=== PATIENT | female | born 1945 | race Caucasian/White ===

== ENCOUNTER 2016-08-18 23:26 | Observation (INO) ==
--- NOTE | 2016-08-19 02:00 | Emergency Department Report ---
General Adult HPI - General Chief complaint: Chest Pain Stated complaint: diff breathimg Time Seen by Provider: 08/19/16 00:08 Source: patient Mode of arrival: ambulatory Limitations: no limitations - History of Present Illness HPI narrative: 71-year-old female presents to the emergency department with a chief complaint of chest discomfort. Patient has noted intermittent chest discomfort over the past several days. She states it is increasing. Patient also notes dyspnea on exertion. She notes a moderate pressure sensation in her left chest currently. No radiation. She notes that her symptoms increase with exertion and improves with rest. No history of coronary artery disease. She has never been evaluated by cardiology. She has no other complaints or associated symptoms. Symptoms been persistent in nature since onset. She was at home when her symptoms began. - Related Data Home Medications Medication Instructions Recorded Confirmed Diclofenac [Voltaren] 100 gm TP 1-2XD 08/19/16 08/19/16 Lisinopril [Zestril] 20 mg PO DAILY 08/19/16 08/19/16 Nitrofurantoin Macrocrystal 100 mg PO 1-2XD 08/19/16 08/19/16 [Nitrofurantoin] Allergies Allergy/AdvReac Type Severity Reaction Status Date / Time morphine AdvReac Severe NAUSEA AND Verified 08/19/16 03:10 VOMITING Review of Systems Constitutional: Denies: fever, chills Eyes: Denies: eye pain, vision change ENT: Denies: ear pain, throat pain Cardiovascular: Reports: chest pain, dyspnea on exertion Respiratory: Denies: cough, dyspnea Gastrointestinal: Denies: abdominal pain, nausea, vomiting, diarrhea Genitourinary: Denies: urgency, dysuria Musculoskeletal: Denies: back pain, arthralgia Integumentary: Denies: erythema, rash Neurological: Denies: headache, numbness Psychiatric: Denies: anxiety, depression Endocrine: Denies: fatigue, heat or cold intolerance Hematological/Lymphatic: Denies: easy bleeding, easy bruising Allergic/Immunologic: Denies: facial swelling, urticaria PFSH Patient Stated Medical History Dysphagia Yes Hypertension Yes Chronic Obstructive Pulmonary Yes Disease (COPD) Osteoarthritis Yes Surgical History: Hysterectomy Family History: Negative. - Social History Smoking status: Never smoker Substance use type: does not use Alcohol intake frequency: does not drink Physical Exam - Limitations Limitations: no limitations - General General appearance: alert, in no apparent distress - Normal Exams: Head:: Normocephalic without trauma Eyes:: Pupils are PERRLA w/ EOMI, No scleral icterus, irritation, or foreign bodies noted ENMT:: No facial trauma, nasal exudates, pharyngeal erythema, or exudates are noted Dental: No fractured, loose, or missing teeth noted Neck:: Full range of motion, without adenopathy, JVD, bruits or thyromegaly Chest/Respirations:: Clear all bullock, with good airflow, and symmetry bilaterally Cardiovascular:: Regular rate and rhythm, without murmur or gallop, Pulses 2+ all extremities, capillary refill, <2 seconds all extremities Abdomen:: Bowel sounds positive, soft, non-tender, non-distended, no hepatosplenomegaly, masses or bruits noted Lymphatic:: No lymphadenopathy, or lymphedema noted Musculoskeletal:: No tenderness, or deformity noted, good range of motion, all extremities Integumentary:: No rashes, hives, or bruising noted, hair and nails, without abnormality Neurological:: Patient is alert, and oriented, cranial nerves, motor/sensory/ cerebellar, exams w/o gross deficits, to observation Psychiatric:: Patient exhibits, appropriate attention, emotion and affect Course Vital Signs Temperature 98.4 F 08/18/16 23:30 Pulse Rate 83 08/18/16 23:30 Respiratory Rate 20 08/18/16 23:30 Blood Pressure 176/76 H 08/18/16 23:30 Pulse Oximetry 94 08/18/16 23:30 Temperature 97.5 F 08/19/16 20:16 Pulse Rate 56 L 08/19/16 21:31 Respiratory Rate 16 08/19/16 21:31 Blood Pressure 119/65 08/19/16 21:31 Pulse Oximetry 100 08/19/16 21:31 Medical Decision Making - [facility] Narrative Medical decision making narrative: Labs / imaging were discussed in detail with the patient and questions are answered. Patient is given 324 mg of aspirin by mouth times one. Patient is given sublingual nitroglycerin trial which alleviated her pain. She is discussed with Dr. Joel and will be admitted to the service of the hospitalist in improved condition. She is given Lovenox subcutaneously 1 mg/kg times one. She is admitted to the service of Dr. Ramos after discussion with Dr. Mcgovern. Cardiology consult will be performed. Patient is in agreement with the current plan of management. She is admitted to the hospital in improved condition. No further orders from accepting physician who is in agreement with the current plan of management. - Differential Diagnosis angina, acute OH, COPD exacerbation, coronary artery disease - Lab Data Result diagrams: 08/19/16 00:42 08/19/16 00:42 Lab Results 08/19/16 08/19/16 08/19/16 Range/Units 00:42 00:42 00:42 WBC 12.4 H (4.5-11.0) T/MM3 RBC 4.27 (4.00-5.20) M/MM3 Hgb 12.9 (12-16) GM/DL Hct 40.5 (36-46) % MCV 94.8 (80-100) UM3 MCH 30.2 (26-34) UUG MCHC 31.9 (31-37) GM/DL RDW Std Deviation 42.8 (36.9-50.2) FL Plt Count 191 (130-400) T/MM3 MPV 11.7 (9.4-12.4) UM3 Immature Gran % (Auto) 0.2 (0.0-0.5) % Neut % (Auto) 78.4 H (33-66) % Lymph % (Auto) 10.0 L (23-45) % [place] % (Auto) 5.6 (0-9.0) % Eos % (Auto) 5.2 H (0-4) % Baso % (Auto) 0.6 (0-2) % Neut # 9.7 H (1.8-7.7) T/MM3 Lymph # 1.2 (1-4.8) T/MM3 [place] # 0.7 (0-0.8) T/MM3 Eos # 0.6 H (0-0.5) T/MM3 Baso # 0.1 (0-0.2) T/MM3 Abs Immat Gran (auto) 0.02 (0.00-0.03) T/MM3 Turbidity < 20 (0-20) Sodium 145 H (134-144) MEQ/L Potassium 4.1 (3.6-5) MEQ/L Chloride 106 (98-107) MEQ/L Carbon Dioxide 27 (22-30) MEQ/L Anion Gap 12 (5-15) MEQ/L BUN 17.0 (7-17) MG/DL Creatinine 0.7 (0.7-1.2) MG/DL GFR Calculation 82 BUN/Creatinine Ratio 24 (6-26) RATIO Glucose 103 (65-110) MG/DL Hemoglobin A1c 5.6 L (6.1-7.9) % Calculated Osmolality 281 H (261-280) MOSM/KG Calcium 9.9 (8.4-10.2) MG/DL Total Bilirubin 0.40 (0.20-1.30) MG/DL Icterus Index < 2 (0-7) AST 19 (14-36) U/L ALT 38 (9-52) U/L Alkaline Phosphatase 95 (38-126) U/L Troponin I < 0.012 (0-0.12) ng/ml Total Protein 6.7 (6.3-8.2) G/DL Albumin 4.0 (3.5-5.0) G/DL Globulin 2.7 (2.4-3.6) G/DL Albumin/Globulin Ratio 1.5 (1.1-2.2) RATIO Specimen Hemolysis < 15 (0-25) - Radiology Data CXR - No acute processes. - EKG Data EKG #1 EKG results narrative: Sinus rhythm. [address] depression in leads V3/V4. No STEMI. Disposition Clinical Impression: Chest pain Qualifiers: Chest pain type: unspecified Qualified Code(s): R07.9 - Chest pain, unspecified Disposition: [address] [facility] Condition: Improved Time of Disposition: 02:15 (Admit. Dr. Ramos. ) - Seen By: physician
[2016-08-19] MEDS ORDERED: HYDROCODONE/APAP 5mg/325mg TABLET PO ONE (02:46)
[2016-08-19] MEDS ORDERED: ASPIRIN 81 MG CHEWABLE TABLET PO ONE (02:46)
[2016-08-19] MEDS ORDERED: ONDANSETRON 4 MG/2 ML INJECTION IVP PRN (03:16)
[2016-08-19] MEDS: NITROGLYCERIN 0.4 MG SUBLINGUAL TABLET SL PRN ×3 (03:26→04:21)
[2016-08-19] MEDS: ENOXAPARIN 60 MG/0.6 ML INJECTION SQ SCH ×2 (04:56→09:19)
--- NOTE | 2016-08-19 04:58 | History & Physical Report ---
<Louie Mcgovern Joseph - Last Filed: 08/19/16 04:55> History of Present Illness Date: 08/19/16 Chief complaint: chest pain HPI: This is a 71 y/o female who has been having intermittent exertional chest pain for over a year. The patient was at work tonight and with exertion developed her pain again that radiated to her jaw and left shoulder. The patient had increased fatigue and shortness of breath with this pain. Symptoms were worse than usual. The patient presents to the ED with an EKG demonstrating subtle ant /lat changes. Cardiology was contacted by ED provider and recommended medicine admission with therapeutic lovenox. The patient has sig risk including HTN, family history, prior tobacco abuse. The patient has never had risk stratifying procedure in the past. Will admit fully to the hospital on tele and await cardiology further input Review of Systems Review of systems: no headache, no change in vision, no ear pain, no congestion, no fever chills or sweats. pain is mostly a pressure substernal left radiating to left jaw and shoulder that is worsened with activity. The patient states that when pain comes on she gets profoundly fatigued and dyspneic. The patient denies nausea or vomiting. patient denies abdomen mariee. no change in BM, no urine symptoms. trace edema. no focal neruo concerns. 10 point ROS otherwise negative except for described above. PFSH Patient Stated Medical History Dysphagia Yes Hypertension Yes Chronic Obstructive Pulmonary Yes Disease (COPD) Gastroesophageal Reflux Yes Disease Osteoarthritis Yes Medical History Updates: HTN. undiagnosed COPD. OA Surgical History: TAHBSO. joint replacement on her great toe - Social History Smoking status: Former smoker Substance use type: does not use Alcohol intake frequency: does not drink Household members: family service: No Current occupational status: employed Current occupational exposures/hazards: No Does patient use chewing tobacco?: No Current residence: Apartment/Private Home Medications Home Medications Medication Instructions Recorded Confirmed Type Diclofenac [Voltaren] 100 gm TP 1-2XD 08/19/16 08/19/16 History Lisinopril [Zestril] 20 mg PO DAILY 08/19/16 08/19/16 History Nitrofurantoin Macrocrystal 100 mg PO 1-2XD 08/19/16 08/19/16 History [Nitrofurantoin] Allergies Allergy/AdvReac Type Severity Reaction Status Date / Time morphine AdvReac Severe NAUSEA AND Verified 08/19/16 03:10 VOMITING Exam Vital Signs: Temp Pulse Resp BP Pulse Ox 98.4 F 83 20 176/76 H 94 08/18/16 23:30 08/18/16 23:30 08/18/16 23:30 08/18/16 23:30 08/18/16 23:30 Telemetry Rhythm: Sinus Rhythm Height: 1.5 m Weight: 57.5 kg - Constitutional Present: no acute distress, well nourished, well developed, average body habitus , cooperative - Routine HEENT Exam Head: Present: normocephalic, atraumatic. Absent: cushingoid faces Eye: Present: EOMI, conjunctivae pink. Absent: scleral injection ENT: Present: mucous membranes moist - Routine Neck Exam Present: supple, full ROM, trachea midline. Absent: tenderness, swelling - Routine Respiratory Exam Present: CTA bilaterally. Absent: rales, respiratory distress, rhonchi, wheezes , crackles - Routine Cardiovascular Exam Present: RRR, no murmur. Absent: gallop, rubs - Routine Abdominal Exam Present: soft, non distended, non tender - Routine Back/Spine/Pelvis Exam Back/Spine: Present: full ROM - Routine Skin Exam Present: intact - Routine Neurological Exam Present: alert, oriented X3, CN II-XII intact, moving all extremities, normal tone. Absent: motor deficit, altered mental status, abnormal gait, facial asymmetry - Routine Psychiatric Exam Present: normal affect, normal thought process, cooperative, good judgment Results - Labs CBC & Chem 7: 08/19/16 00:42 08/19/16 00:42 - ECG Data Tracing #1 sinus. subtle t wave depression V3 through V4, no old to compare - Imaging and Cardiology Chest x-ray Additional comments: flattened diaphragm. c/w COPD changes Assessment and Plan (1) Chest pain Current visit: Yes Status: Acute 08/19/16 05:04 this patient's symptoms are very worrisom. DDX: unstable angina, pleuresy, MS. rule out ongoing. risk is real with remote tobacco, HTN, family history. check A1C, lipid panel. NPO. Cardiology contacted by ED and r/c therapeutic lovenox. Will defer further workup to their recommendations. In this case it might be worthwhile to go directly to heart cath. Even is stress test were to be negative there would be real concern that it was a false negative. (2) HTN (hypertension) Current visit: Yes Status: Acute 08/19/16 05:06 once med rec completed will continue JONNA, consdier adding b bozena if continued concerns about cardiac issues. (3) COPD (chronic obstructive pulmonary disease) Current visit: Yes Status: Acute 08/19/16 05:06 This patient has a history of tobacco abuse. currently resolved. CXR is very abnormal and is c/w COPD changes with hyperexpansion and flattened diaphragm. For now albuterol and consider bedside spirometry to better define. The priority is cardiac eval first. DVT Prophylaxis: SCD's, Lovenox GI Prophylaxis: Protonix Resuscitation Status: Full Code Hospital Course Summary Disclaimer: The visit summary below is not to be considered part of the above Progress Note. <Mila Ramos - Last Filed: 08/19/16 16:44> History of Present Illness Date: 08/19/16 [facility] Patient Stated Medical History Dysphagia Yes Hypertension Yes Chronic Obstructive Pulmonary Yes Disease (COPD) Gastroesophageal Reflux Yes Disease Osteoarthritis Yes Exam Vital Signs: Temp Pulse Resp BP Pulse Ox 96.2 F L 63 17 163/78 H 97 08/19/16 16:00 08/19/16 16:00 08/19/16 16:00 08/19/16 16:00 08/19/16 16:00 Height: 1.5 m Weight: 58.2 kg Results - Labs CBC & Chem 7: 08/19/16 00:42 08/19/16 00:42 Assessment and Plan (1) Chest pain Current visit: Yes Status: Acute (2) HTN (hypertension) Current visit: Yes Status: Acute (3) COPD (chronic obstructive pulmonary disease) Current visit: Yes Status: Acute Assessment and Plan: Dr. Mcgovern's note reviewed. Mrs. Duran interviewed and examined. CC: Chest pain HPI: Mrs. Duran is a 71-year-old female who describes intermittent pain in the left chest for the past year. Episodes can be with exertion or at rest and have awakened her from sleep. Pain typically starts under the left breast and radiates into the left side of her neck but generally does not involve the left shoulder arm. There is a comforting dyspnea but no nausea or diaphoresis. She's tried taking Aleve to control symptoms and indicates partial relief. Discomfort can last for hours at a time. Over the past year episodes become more frequent, severe, and lasted longer. 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 She developed progressive pain and difficulty breathing. She described significant pressure in her chest and a sensation that she was struggling to breathe. She felt hot but does not recall diaphoresis and again denied nausea. She reported lightheadedness but no awareness of palpitations. She presented to the emergency room where EKG revealed mild ST depression in anterior leads and she was hospitalized for further assessment. Patient has risk factors including hypertension, family history of coronary disease and history of tobacco abuse. PH/SH/FH: agree with that recorded above by Dr. Mcgovern. Patient smoked 1-2 packs per day for 25 years and discontinued tobacco use 7 years ago. Family history is notable for 1 son dying at age 1 of congenital heart disease, mother dying of ovarian cancer, father dying of Parkinson's disease and asthma. A sister had heart disease and a second sister has thyroid disease. ROS: 10 point review as recorded above. Patient additionally reports having frequent nocturia and that her legs feel heavy. EXAM: General-NAD, alert, slightly anxious 123/87, 163/78 pulse 55, 63 temperature 96.2 HEENT-PERRL, EOMI without nystagmus, conjunctiva clear, sclera anicteric, conjugate gaze, facial structures symmetric, oropharynx clear, neck supple and without adenopathy Lungs-respirations nonlabored, good airflow, breath sounds clear Cardiac-regular rhythm, S1-S2, no murmur appreciated Abd-abdomen soft, nontender, without palpable mass, bowel sounds present although diminished Ext-trace edema bilateral lower extremities Skin-without rash Neuro-cranial nerves II through XII intact, motor tone/power within normal limits, sensation intact 4 extremities to light touch Psych-calm, cooperative, slightly anxious DATA: Twelve-lead EKG reviewed by myself-normal sinus rhythm, minor ST depression V3-V5, no T-wave changes. Chest x-ray also reviewed by myself demonstrating normal cardiac silhouette, clear lung bullock. White count slightly elevated at 12.4, electrolytes/liver enzymes unremarkable, TSH 3.48, A1c 5.6 Troponin < 0.0122 A/P: Atypical chest pain Abnormal EKG Intermittent bradycardia Hypertension History COPD/hx tobacco abuse GERD DJD Case been reviewed with Dr. Joel-cardiac catheterization planned later today due to EKG changes. Third troponin pending. Aspirin, therapeutic Lovenox initiated last night. Lipids pending. Continue lisinopril for hypertension, may benefit from initiation of beta bozena depending on results of heart catheterization. Outpatient status for evaluation of chest pain. Patient will return to care of Clari Luis APRN at [facility] at discharge. Sepsis Assessment - Focused Exam Vital Signs Temp Pulse Resp BP Pulse Ox 08/19/16 16:00 96.2 F L 63 17 163/78 H 97 08/19/16 08:00 96.9 F 55 L 18 123/85 93 08/19/16 04:45 70 08/19/16 04:37 80 08/19/16 04:30 96.4 F L 73 18 146/80 H 94 Hospital Course Summary Disclaimer: The visit summary below is not to be considered part of the above Progress Note.
--- NOTE | 2016-08-19 08:00 | XRay Report ---
Indication: Left-sided chest pain and dyspnea PROCEDURE: XR chest 1V: Encounter: Initial Comparison: June 20, 2014 Findings: The lungs are stable in appearance without new focal airspace consolidation. Mild interstitial prominence and hyperinflation suggesting COPD. There is no pleural effusion or pneumothorax. The heart size, pulmonary vascularity and mediastinal contours are unchanged. IMPRESSION: Stable appearance of the chest without acute cardiopulmonary disease. .
[2016-08-19] MEDS: LISINOPRIL 20 MG TABLET PO SCH (09:19)
--- NOTE | 2016-08-19 10:10 | Cardiology Consult Note ---
History of Present Illness Consult date: 08/19/16 <Christa Arreaga 08/19/16 10:21> Requesting physician: Mila Ramos <Christa Arreaga 08/19/16 10:21> Consult reason: chest pain <Christa Arreaga 08/19/16 10:21> Chief complaint: chest pain <Christa Arreaga 08/19/16 10:21> History of present illness: Monika is a 71 year old female who has been having intermittent exertional chest pain for over a year. She was at work last evening and with exertion developed her pain again that radiated to her jaw and left shoulder. She had increased fatigue and shortness of breath with this pain that became worse when she laid down. She presented to the ED with an EKG demonstrating subtle ant/lat changes. Dr Joel was contacted by ED provider and recommended medicine admission with therapeutic Lovenox. The patient has risk factors including HTN, family history, prior tobacco abuse and reports high lipids. She has never been seen by Cardiology. She is examined in her room on Medical. She reports chronic chest pain with exertion. She describes a pressure on her left chest which began at work but worsened when she laid down at home. This was accompanied by shortness of breath. She denies diaphoresis, nausea, dizziness or near syncope. She reports urinary infection which she has been struggling with for weeks and is currently taking Nitrofurantoin. <Christa Arreaga 08/19/16 10:21> Review of Systems - Constitutional Constitutional: Present: fatigue. Absent: chills, fever(s), headache(s), weakness <Christa Arreaga 08/19/16 10:21> - EENMT Eyes: Absent: change in vision <Christa Arreaga 08/19/16 10:21> Balance: Absent: vertigo <Christa Arreaga 08/19/16 10:21> Mouth/Throat: Absent: sore throat <Christa Arreaga 08/19/16 10:21> - Cardiovascular Cardiovascular: Present: chest pain, orthopnea. Absent: palpitations, syncope, heart murmur <Christa Arreaga 08/19/16 10:21> Vascular: Absent: pedal edema <Christa Arreaga 08/19/16 10:21> - Respiratory Respiratory: Present: dyspnea <Christa Arreaga 08/19/16 10:21> - Gastrointestinal Gastrointestinal: Absent: diarrhea, nausea, vomiting <Chrisat Arreaga 10:21> - Genitourinary Genitourinary: Present: dysuria, urinary frequency <Christa Arreaga 08/19/16 10:21> - Neurological Neurological: Absent: dizziness <Christa Arreaga 08/19/16 10:21> PFSH Patient Stated Medical History Dysphagia Yes Hypertension Yes Chronic Obstructive Pulmonary Yes Disease (COPD) Gastroesophageal Reflux Yes Disease Osteoarthritis Yes <Haris Joel - 08/21/16 13:26> Patient Stated Medical History Dysphagia Yes Hypertension Yes Chronic Obstructive Pulmonary Yes Disease (COPD) Gastroesophageal Reflux Yes Disease Osteoarthritis Yes <Christa Arreaga 08/19/16 10:21> Medical History Updates: HTN. undiagnosed COPD. OA <Christa Arreaga 10:21> Surgical History: TAHBSO. joint replacement on her great toe <Christa Arreaga 08/19/16 10:21> - Social History Smoking status: Former smoker <Christa Arreaga 08/19/16 10:21> Packs-years: 25 <Christa Arreaga 08/19/16 10:21> Substance use type: does not use <Christa Arreaga 08/19/16 10:21> Alcohol intake frequency: does not drink <Christa Arreaga 08/19/16 10:21> Current occupational status: employed <Christa Arreaga 08/19/16 10:21> Does patient use chewing tobacco?: No <Christa Arreaga 08/19/16 10:21> Current residence: Apartment/Private Home <Christa Arreaga 08/19/16 10:21> Medications Home Medications Medication Instructions Recorded Confirmed Type Diclofenac [Voltaren] 100 gm TP 1-2XD 08/19/16 08/19/16 History Lisinopril [Zestril] 20 mg PO DAILY 08/19/16 08/19/16 History Nitrofurantoin Macrocrystal 100 mg PO 1-2XD 08/19/16 08/19/16 History [Nitrofurantoin] <WisamHaris - 08/21/16 13:26> Allergies Allergy/AdvReac Type Severity Reaction Status Date / Time morphine AdvReac Severe NAUSEA AND Verified 08/19/16 03:10 VOMITING <BebedennisHaris - 08/21/16 13:26> Exam Vital signs: Temp Pulse Resp BP Pulse Ox 96.7 F L 75 16 134/72 92 08/20/16 12:00 08/20/16 12:00 08/20/16 12:00 08/20/16 12:00 08/20/16 12:00 <Haris Joel - 08/21/16 13:26> Temp Pulse Resp BP Pulse Ox 96.9 F 70 18 123/85 93 08/19/16 08:00 08/19/16 08:00 08/19/16 08:00 08/19/16 08:00 08/19/16 08:00 <Christa Arreaga - 08/19/16 10:21> - Constitutional no acute distress, well developed, cooperative <Christa Arreaga - 08/19/16 10: 21> - Routine HEENT Exam ENT: Present: mucous membranes moist <Christa Arreaga - 08/19/16 10:21> - Routine Neck Exam Absent: JVD, carotid bruit <Christa Arreaga - 08/19/16 10:21> - Routine Chest/Breast/Axilla Exam Chest wall: Absent: tenderness <Christa Arreaga - 08/19/16 10:21> - Routine Cardiovascular Exam Present: RRR, no murmur. Absent: gallop, rubs, click, JVD <Christa Arreaga - 08/19/16 10:21> - Routine Abdominal Exam Present: soft, normoactive bowel sounds <Christa Arreaga 08/19/16 10:21> - Routine Neurological Exam Present: alert, oriented X3 <Christa Arreaga 08/19/16 10:21> - Routine Psychiatric Exam Present: normal affect, normal thought process <Christa Arreaga 08/19/16 10: 21> Results 08/20/16 04:37 08/20/16 04:37 <Brandyn Joelsein - 08/21/16 13:26> Lipids 08/20/16 Range/Units 04:37 Triglycerides 73 (35-135) MG/DL Cholesterol 198 (132-199) MG/DL HDL Cholesterol 58 (40-60) MG/DL Cholesterol/HDL Ratio 3.4 (0-4.0) RATIO Intake and Output 08/20/16 08/21/16 08/21/16 22:59 06:59 14:59 Output Total 150 / 150 Balance -150 / -150 Output: Urine 150 / 150 <Brandyn Joelsein - 08/21/16 13:26> Cardiac Enzymes 08/19/16 Range/Units 05:37 Troponin I < 0.012 (0-0.12) ng/ml Intake and Output 08/18/16 08/19/16 08/19/16 22:59 06:59 14:59 Other: # Voids 1 Weight 128 lb 4.944 oz Patient Weight 08/20/16 06:59 Weight 128 lb 4.944 oz Laboratory Results - last 48 hr 08/19/16 08/19/16 08/19/16 00:42 00:42 00:42 WBC 12.4 H RBC 4.27 Hgb 12.9 Hct 40.5 MCV 94.8 MCH 30.2 MCHC 31.9 RDW Std Deviation 42.8 Plt Count 191 MPV 11.7 Immature Gran % (Auto) 0.2 Neut % (Auto) 78.4 H Lymph % (Auto) 10.0 L [place] % (Auto) 5.6 Eos % (Auto) 5.2 H Baso % (Auto) 0.6 Neut # 9.7 H Lymph # 1.2 Black[place] # 0.7 Eos # 0.6 H Baso # 0.1 Abs Immat Gran (auto) 0.02 Turbidity < 20 Sodium 145 H Potassium 4.1 Chloride 106 Carbon Dioxide 27 Anion Gap 12 BUN 17.0 Creatinine 0.7 GFR Calculation 82 BUN/Creatinine Ratio 24 Glucose 103 Hemoglobin A1c 5.6 L Calculated Osmolality 281 H Calcium 9.9 Total Bilirubin 0.40 Icterus Index < 2 AST 19 ALT 38 Alkaline Phosphatase 95 Troponin I < 0.012 Total Protein 6.7 Albumin 4.0 Globulin 2.7 Albumin/Globulin Ratio 1.5 TSH Specimen Hemolysis < 15 08/19/16 08/19/16 05:37 05:37 WBC RBC Hgb Hct MCV MCH MCHC RDW Std Deviation Plt Count MPV Immature Gran % (Auto) Neut % (Auto) Lymph % (Auto) [place] % (Auto) Eos % (Auto) Baso % (Auto) Neut # Lymph # [place] # Eos # Baso # Abs Immat Gran (auto) Turbidity Sodium Potassium Chloride Carbon Dioxide Anion Gap BUN Creatinine GFR Calculation BUN/Creatinine Ratio Glucose Hemoglobin A1c Calculated Osmolality Calcium Total Bilirubin Icterus Index AST ALT Alkaline Phosphatase Troponin I < 0.012 Total Protein Albumin Globulin Albumin/Globulin Ratio TSH 3.48 Specimen Hemolysis < 15 <Christa Arreaga - 08/19/16 10:21> - Imaging and Cardiology EKG results: image reviewed <Christa Arreaga - 08/19/16 15:37> Imaging & Cardiology Narrative: Date of Exam: 08/19/16 Ordering Provider: Albert Taylor DO Type of Exam(s): XR chest 1V Reason for Exam(s): pain Indication: Left-sided chest pain and dyspnea PROCEDURE: XR chest 1V: Encounter: Initial Comparison: June 20, 2014 Findings: The lungs are stable in appearance without new focal airspace consolidation. Mild interstitial prominence and hyperinflation suggesting COPD. There is no pleural effusion or pneumothorax. The heart size, pulmonary vascularity and mediastinal contours are unchanged. IMPRESSION: Stable appearance of the chest without acute cardiopulmonary disease. 08/19/16 10:16 <Christa Arreaga - 08/19/16 10:21> EKG interpretations - Dysrhythmias Sinus rhythms and dysrhythmias: sinus rhythm <Christa Arreaga - 08/19/16 10:21> - Blocks, axis, hypertrophy, ST abn Repolarization changes or abnormalities: ST or T wave suggestive of ischemia < Chrisat Arreaga - 08/19/16 10:21> Assessment and Plan (1) Chest pain Status: Acute (2) HTN (hypertension) Status: Chronic <Haris Joel - 08/21/16 13:26> (1) Chest pain Status: Acute Acute on Chronic. Troponin negative X2. EKG with ST depression in V3, V4. No history of CAD, Risk factors include HTN, reported HLD. Plan Left heart catheterization today (2) HTN (hypertension) Status: Acute Continue Lisinopril <Christa Arreaga - 08/19/16 15:36> Hospital Course Summary Disclaimer: The visit summary below is not to be considered part of the above Progress Note. <BbeedennisHaris - 08/21/16 13:26> The visit summary below is not to be considered part of the above Progress Note. <Christa Arreaga - 08/19/16 10:21> Hospital Course: 08/21/16 13:26 Recommendation After examining the patient I agree with the above assessment. I am involved in the formulation of the patient's plan of care. <Haris Joel - 08/21/16 13:26> Sepsis Assessment - Focused Exam Vital Signs Temp Pulse Resp BP Pulse Ox 08/19/16 08:00 96.9 F 70 18 123/85 93 08/19/16 04:45 70 08/19/16 04:37 80 08/19/16 04:30 96.4 F L 73 18 146/80 H 94 08/19/16 04:19 62 28 H 136/63 94 08/19/16 04:15 66 26 H 93 <Christa Arreaga - 08/19/16 10:21> Respiratory exam: Present: CTA bilaterally. Absent: rales, respiratory distress , rhonchi, wheezes, crackles <Christa Arreaga - 08/19/16 10:21> Cardiovascular exam: Present: RRR, no murmur. Absent: gallop, rubs <Christa Arreaga - 08/19/16 10:21>
[2016-08-19] MEDS: NS 1,000 ML IV SCH ×2 (12:13→22:37)
[2016-08-19] MEDS ORDERED: LORazepam 0.5 MG TABLET PO PRN (18:46)
[2016-08-19] MEDS ORDERED: BISACODYL 10 MG SUPPOSITORY RECTALLY PRN (18:46)
[2016-08-19] MEDS ORDERED: ATROPINE 1 MG/ML INJECTION IVP PRN (18:46)
[2016-08-19] MEDS ORDERED: METOCLOPRAMIDE 10mg/2ml INJECTION IVP PRN (18:46)
[2016-08-19] MEDS ORDERED: ACETAMINOPHEN 325 MG TABLET PO PRN (18:46)
[2016-08-19] MEDS ORDERED: NITROGLYCERIN 0.4 MG SUBLINGUAL TABLET SL PRN (18:46)
[2016-08-19] MEDS ORDERED: MAG-AL + SIM ORAL LIQUID 30ml PO PRN (18:46)
[2016-08-19] MEDS ORDERED: BISACODYL E.C. 5 MG TABLET PO PRN (18:46)
[2016-08-19] MEDS ORDERED: PROMETHAZINE 25 MG INJECTION IVP PRN (18:46)
[2016-08-19] MEDS: ONDANSETRON 4 MG/2 ML INJECTION IVP PRN (19:23)
[2016-08-19] MEDS ORDERED: FentaNYL 100 MCG/2 ML INJECTION IVP ONE (21:00)
[2016-08-19] MEDS: DICLOFENAC 1% TOP GEL 100gm TP SCH (21:38)
[2016-08-20] MEDS: ONDANSETRON 4 MG/2 ML INJECTION IVP PRN (01:35)
[2016-08-20] MEDS: DICLOFENAC 1% TOP GEL 100gm TP SCH ×2 (06:17→08:21)
[2016-08-20] MEDS: LISINOPRIL 20 MG TABLET PO SCH (08:21)
[2016-08-20] MEDS: NS 1,000 ML IV SCH (08:24)
[2016-08-20] MEDS ORDERED: NAPROXEN 220 MG TABLET PO ONE (08:39)
[2016-08-20] MEDS ORDERED: ASPIRIN *EC* 81 MG TABLET PO SCH (09:00)
--- NOTE | 2016-08-20 14:49 | Work/School Release ---
Work/School Release - Date Date: 08/19/16 - Work Release Remain off work/school for:: 48hours. Excused for:: recent hospitalization May return to work on:: 08/22/16 Restrictions:: No lifting more than 10 pounds, no pushing or pulling for 1 week May resume normal activity on:: 08/26/16
--- NOTE | 2016-08-20 15:34 | Discharge Summary ---
Discharge Plan - Med Rec/Dispo Referrals/Follow Up: FIORDALIZA CARVALHO APRN [Family Provider] - 1 Day Prescriptions: New Famotidine [Pepcid AC] 20 mg PO BID #60 tablet Oxybutynin Ir [Ditropan] 5 mg PO BID #60 tablet Continue Lisinopril [Zestril] 20 mg PO DAILY Diclofenac [Voltaren] 100 gm TP 1-2XD Nitrofurantoin Macrocrystal [Nitrofurantoin] 100 mg PO 1-2XD - Disposition 01 Discharged Home, Self-Care
--- NOTE | 2016-08-20 15:40 | Echocardiogram ---
DATE OF PROCEDURE August 19, 2016 This is a two-dimensional echo with spectral Doppler, color-flow and M-mode. It was obtained in a patient with chest pain. Left atrial dimension is increased. Left ventricle end-diastolic dimension is normal. Left ventricle wall thickness is at the upper limits of normal. LV systolic function is normal with ejection fraction of about 62%. Right atrium is dilated. Right ventricle is normal. Aortic root dimension is normal. Mitral valve is morphologically normal with mild mitral regurgitation. Aortic valve appears to be normal. Tricuspid valve shows moderate tricuspid regurgitation with moderate pulmonary hypertension with estimated pulmonary artery systolic pressure of 57. Pulmonary valve shows trace of pulmonary insufficiency. There is no pericardial effusion. IMPRESSION 1. Normal LV systolic function with ejection fraction of 62%. 2. Trace of pulmonary insufficiency. 3. Biatrial dilation. 4. Moderate tricuspid regurgitation with moderate pulmonary hypertension with estimated pulmonary artery systolic pressure of 57. 5. Mild mitral regurgitation. MTDD
--- NOTE | 2016-08-20 16:31 | Cardiac Catheterization Report ---
DATE OF PROCEDURE August 19, 2016 INDICATIONS The patient is a pleasant 71-year-old lady who was admitted with symptoms of unstable angina and was referred for further evaluation by cardiac catheterization and possible intervention. INFORMED CONSENT Informed consent was obtained after explaining the procedure and the potential risks to the patient who agreed to proceed with the procedure. PROCEDURE 1. Left heart catheterization. 2. Coronary angiography. 3. Left ventriculography. TECHNIQUE The patient was prepped and draped in the usual sterile techniques. 1% lidocaine was used for local anesthesia. Using modified Seldinger technique, arterial access was obtained into the right radial artery with placement of a 6- [place] arterial sheath. Conscious sedation was performed using Versed and fentanyl. 3000 units of heparin, 300 mcg of nitroglycerin, and 2.5 mg of verapamil were given through the arterial sheath. LEFT VENTRICULOGRAPHY Left ventriculography in single-plane HARDY shallow projection showed normal LV systolic function with ejection fraction of about 65% with no mitral regurgitation or gradient across the aortic valve. LVEDP was about 11. CORONARY ANGIOGRAPHY Left main, left anterior descending and diagonals, left circumflex and marginals , and right coronary artery were all free of significant lesions. The patient tolerated the procedure well with no complications. IMPRESSION 1. No significant coronary obstructive disease. 2. Normal LV systolic function with ejection fraction of about 65%. PLAN Medical management and possible noncardiac chest pain workup as per primary care physician. RADHA
[2016-08-20] MEDS ORDERED: NITROGLYCERIN 50MG INJECTION IV ONE (17:09)
[2016-08-20] MEDS ORDERED: HEPARIN 1,000 UNIT/ML INJECTION 10ml IVP ONE (17:09)
[2016-08-20] MEDS ORDERED: HEPARIN 1,000 UNITS/500 ML PREMIX (*CVL ONLY*) IV ONE (17:09)
[2016-08-20] MEDS ORDERED: LIDOCAINE 1% (10mg/ml) 30ml SDV INJ INJ ONE (17:09)
[2016-08-20] MEDS ORDERED: MIDAZOLAM 2mg/2ml INJECTION IVP ONE (17:09)
[2016-08-20] MEDS ORDERED: VERAPAMIL 5 MG/2 ML VIAL IVP ONE (17:09)
--- NOTE | 2016-08-20 20:37 | Discharge Summary ---
Discharge Information Date of admission: 08/19/16 04:12 Anticipated date of discharge: 08/20/16 Attending Physician: Mila Ramos MD Primary care physician: FIORDALIZA CARVALHO Consults: Dr. Joel - Discharge Diagnosis (1) Chest pain Status: Acute (2) HTN (hypertension) Qualifiers: Hypertension type: essential hypertension Qualified Code(s): I10 - Essential (primary) hypertension Status: Chronic (3) COPD (chronic obstructive pulmonary disease) Qualifiers: COPD type: unspecified COPD Qualified Code(s): J44.9 - Chronic obstructive pulmonary disease, unspecified Status: Chronic - Procedures Procedures: Echocardiogram 08/19: Left atrial dimension is increased. Left ventricle end-diastolic dimension is normal. Left ventricle wall thickness is at the upper limits of normal. LV systolic function is normal with ejection fraction of about 62%. Right atrium is dilated. Right ventricle is normal. Aortic root dimension is normal. Mitral valve is morphologically normal with mild mitral regurgitation. Aortic valve appears to be normal. Tricuspid valve shows moderate tricuspid regurgitation with moderate pulmonary hypertension with estimated pulmonary artery systolic pressure of 57. Pulmonary valve shows trace of pulmonary insufficiency. There is no pericardial effusion. IMPRESSION 1. Normal LV systolic function with ejection fraction of 62%. 2. Trace of pulmonary insufficiency. 3. Biatrial dilation. 4. Moderate tricuspid regurgitation with moderate pulmonary hypertension with estimated pulmonary artery systolic pressure of 57. 5. Mild mitral regurgitation. Cardiac catheterization on 08/19: 1. No significant coronary obstructive disease. 2. Normal LV systolic function with ejection fraction of about 65% - Laboratory Labs: 08/20/16 04:37 08/20/16 04:37 On admission white count 12.4, hemoglobin 12.9, differential unremarkable, electrolytes/liver enzymes unremarkable. Creatinine 0.7. Troponin <0.0123 A1c 5.6, TSH 3.48 Urinalysis unremarkable Lipid studies pending at discharge - Radiology Radiology: Chest x-ray on 08/19- mild hyperinflation, NAD. History of Present Illness HPI: This is a 71 y/o female who has been having intermittent exertional chest pain for over a year. The patient was at work tonight and with exertion developed her pain again that radiated to her jaw and left shoulder. The patient had increased fatigue and shortness of breath with this pain. Symptoms were worse than usual. The patient presents to the ED with an EKG demonstrating subtle ant /lat changes. Cardiology was contacted by ED provider and recommended medicine admission with therapeutic lovenox. The patient has sig risk including HTN, family history, prior tobacco abuse. The patient has never had risk stratifying procedure in the past. Will admit fully to the hospital on tele and await cardiology further input Hospital Course Hospital course: Ms. Duran is a 71 year old female who presented with increasing frequency/ severity of left precordial chest pain, often prolonged. Subtle EKG changes were present on admission prompting hospitalization. Serial troponins were unremarkable. She was seen in consultation by Dr. Joel who recommended cardiac catheterization which was undertaken late on the hospitalization. Cardiac catheterization was unremarkable. The patient was pain free overnight but in the morning on 08/20 described right knee pain and had a small joint effusion present. She indicated that the knee has previously required injection which will be coordinated in her primary care physician's office. History suggested possible reflux for which famotidine was initiated. On 08/20 the patient also complained of urinary frequency which has been chronic. UA was unremarkable. Examination otherwise revealed respirations to be nonlabored with clear breath sounds. Cardiac exam was regular. Patient is stable for discharge at this time with plans for follow-up as soon as possible in her primary providers office at [facility]. Treatment with famotidine 20 mg twice a day was initiated in the event reflux/ esophageal spasm triggered the presenting symptoms. She was also started on ditropan 5 mg twice a day for overactive bladder but may require further outpatient evaluation. Due to these symptoms patient was advised to be off work for several days pending reassessment. Discharge Plan - Med Rec/Dispo Referrals/Follow Up: FIORDALIZA CARVALHO APRN [Family Provider] - 1 Day Melody Instructions: [facility] [place] Heart Cath Trans Rad, Chest Pain (DC) Prescriptions: New Famotidine [Pepcid AC] 20 mg PO BID #60 tablet Oxybutynin Ir [Ditropan] 5 mg PO BID #60 tablet Continue Lisinopril [Zestril] 20 mg PO DAILY Diclofenac [Voltaren] 100 gm TP 1-2XD Nitrofurantoin Macrocrystal [Nitrofurantoin] 100 mg PO 1-2XD - Disposition 01 Discharged Home, Self-Care
== END 2016-08-20 17:10 | disposition home or self-care (01) ==
LOC: ED 23:26 → INTOOBSV 08-19 03:17 → SRG 08-19 03:17 → MED 08-19 04:11 → INTOOBSV 08-19 04:11 → SRG 08-19 04:25 → MED 08-19 04:25 → SRG 08-19 18:35 → UNDODISOB 08-20 17:10
PROVIDERS: ADMIT Emergency Medicine; ATTEND Internal Medicine